=== PATIENT | male | born 1980 | race Caucasian/White ===

== ENCOUNTER 2021-02-01 16:54 | Emergency (ER) | payer OTHER ==
[~2021-02-01 16:54] MED LIST: IBUPROFEN600 MG PO; MEDROL DOSEPAK 24 MG PO; NORFLEX 100 MG100 MG PO
[2021-02-01 17:48] LABS: HEMOGLOBIN 12.8 gm/dl (14.0-17.5); RED BLOOD COUNT 4.26 M/UL (4.20-5.50)
[2021-02-01 18:12] LABS: BUN/CREATININE RATIO 13 (0-10)
== END 2021-02-01 20:33 | disposition home or self-care (01) ==
LOC: ER1 16:54
PROVIDERS: Emergency Medicine
DX: R16.1 Splenomegaly, not elsewhere classified (principal); Z88.0 Allergy status to penicillin; F17.210 Nicotine dependence, cigarettes, uncomplicated
CPT/HCPCS: 80053; 82550; 82553; 83605; 83690; 85025; 96374; 96375; 99284; J1885; J2405; Q9967

== ENCOUNTER 2021-03-01 01:46 | Emergency (ER) | payer OTHER ==
[2021-03-01] MEDS ORDERED: CLEOCIN HCL300 MG PO (03:58)
== END 2021-03-01 04:12 | disposition home or self-care (01) ==
LOC: ER1 01:46
DX: L02.213 Cutaneous abscess of chest wall (principal); F17.210 Nicotine dependence, cigarettes, uncomplicated
CPT/HCPCS: 99282

== ENCOUNTER 2021-10-08 15:24 | Emergency (ER) | payer OTHER ==
[~2021-10-08 15:24] MED LIST changes: +CLEOCIN HCL300 MG PO
[2021-10-08] MEDS ORDERED: IBUPROFEN800 MG PO (19:12)
[2021-10-08] MEDS ORDERED: CLINDAMYCIN HC150 MG PO (19:12)
== END 2021-10-08 19:15 | disposition home or self-care (01) ==
LOC: ER1 15:24
DX: K02.9 Dental caries, unspecified (principal); F17.290 Nicotine dependence, other tobacco product, uncomplicated; Z88.0 Allergy status to penicillin
CPT/HCPCS: 99282

== ENCOUNTER 2021-11-27 03:01 | Emergency (ER) | payer OTHER ==
[~2021-11-27 03:01] MED LIST changes: +CLINDAMYCIN HC150 MG PO; +IBUPROFEN800 MG PO
[2021-11-27] MEDS ORDERED: BACTROBAN OINT22 GM EXT (03:24)
[2021-11-27] MEDS ORDERED: [UNRECOGNIZED DRUG - REMARK] (03:25)
== END 2021-11-27 03:30 | disposition home or self-care (01) ==
LOC: ER1 03:01
DX: L01.00 Impetigo, unspecified (principal); Z86.19 Personal history of other infectious and parasitic diseases
CPT/HCPCS: 99283